=== PATIENT | female | born 1995 | race Caucasian/White ===

== ENCOUNTER → 2016-09-24 | Outpatient (CLI) | payer BC ==
[2016-09-29 09:57] LABS: CHLAMYDIA TRACH RNA*** NOT DETECTED (NOT DETECTED); GC (NEIS GONORRHOEAE)RNA** NOT DETECTED (NOT DETECTED)
== END | disposition home or self-care (01) ==
LOC: C.LABSPEC 15:16
PROVIDERS: ATTEND Physician Assistant
DX: Z01.419 Encounter for gynecological examination (general) (routine) without abnormal findings (principal)

== ENCOUNTER → 2017-09-10 | Outpatient (CLI) | payer BC ==
--- NOTE | 2017-09-10 13:29 | DIAGNOSTIC IMAGING REPORT ---
R KNEE 4 OR MORE CLINICAL HISTORY: RIGHT KNEE PAIN COMPARISON: None. DISCUSSION: No fractures or dislocations are visualized. There are no erosive or destructive changes. IMPRESSION: Unremarkable conventional radiographic evaluation of the right knee. Electronically signed by: Doug Carr M.D. 09/10/2017 1:28 PM Dictated Date/Time: 09/10/2017 1:27 PM
== END | disposition home or self-care (01) ==
LOC: C.RDSM 13:08
PROVIDERS: ATTEND Family Medicine
DX: M25.561 Pain in right knee (principal)

== ENCOUNTER → 2017-09-17 | Outpatient (CLI) | payer BC ==
--- NOTE | 2017-09-17 09:17 | DIAGNOSTIC IMAGING REPORT ---
R LOWER EXT JOINT WITHOUT CLINICAL HISTORY: 22 years-old Female with RIGHT KNEE PAIN. Acute right knee pain COMPARISON: Right knee radiographs 09/10/2017 TECHNIQUE: Multiplanar, multisequence MRI of the right knee was performed without intravenous contrast. FINDINGS: Study is motion degraded. MENISCI: The lateral meniscus is normal in position, morphology and signal. Horizontal undersurface tear involves the anterior junction and body of the medial meniscus seen best on the coronal PD images, 16 through 18. The sagittal images are mildly motion degraded. Mild associated reactive parameniscal edema without displaced fragment or parameniscal cyst identified. CRUCIATE LIGAMENTS: The anterior and posterior cruciate ligaments are normal in signal, morphology and course. COLLATERAL LIGAMENTS: The popliteus tendon, biceps femoris tendon, fibular collateral ligament and iliotibial band are intact. The superficial and deep components of the medial collateral ligament are intact. EXTENSOR MECHANISM: The quadriceps and patellar tendons are intact. The medial and lateral patellar retinacula are intact. KNEE JOINT: There is no large joint effusion. There is no focal cartilage or osteochondral abnormality. BONE MARROW: The bone marrow signal is age appropriate. No fracture, marrow edema, or marrow replacing process. SOFT TISSUES: Minimal nonspecific subcutaneous edema within the prepatellar tissues. No loculated fluid collection to suggest bursitis. Trace fluid within the deep pretibial bursa. Trace Cee's cyst measures up to 1.3 cm in length. IMPRESSION: 1. Motion degraded exam. 2. Horizontal undersurface tear of the anterior junction and body medial meniscus with mild associated reactive parameniscal edema. No displaced fragment or parameniscal cyst identified. 3. Trace Cee's cyst. 4. No evidence of acute ligamentous injury. The above report was generated using voice recognition software. It may contain grammatical, syntax or spelling errors. Electronically signed by: Babar Middleton M.D. 09/17/2017 9:16 AM Dictated Date/Time: 09/17/2017 9:07 AM
== END | disposition home or self-care (01) ==
LOC: C.MRI 07:56
PROVIDERS: ATTEND Family Medicine
DX: M25.561 Pain in right knee (principal); S83.241A Other tear of medial meniscus, current injury, right knee, initial encounter; X58.XXXA Exposure to other specified factors, initial encounter